=== PATIENT | male | born 1970 | race Caucasian/White ===

== ENCOUNTER 2018-03-19 20:41 | Outpatient (REF) | payer MEDICAID, SELFPAY ==
[2018-03-19 21:37] LABS: Cholesterol 297 mg/dL (50-200); HDL Cholesterol 53 mg/dL (40-60); LDL CHOLESTEROL 218 mg/dL (<100); Triglyceride 162 mg/dL (30-150)
== END 2018-03-19 21:01 ==
LOC: NCHCN 20:41
PROVIDERS: PCP Specialist/Technologist Athletic Trainer; Visit Provider Specialist/Technologist Athletic Trainer
DX: Z13.220 Encounter for screening for lipoid disorders (principal); Z00.00 Encounter for general adult medical examination without abnormal findings
CPT/HCPCS: 80061; 83721

== ENCOUNTER 2019-07-01 09:41 | Outpatient (REF) | payer MEDICAID, SELFPAY ==
[2019-07-01 20:12] LABS: ALT 54 U/L (16-63); AST 25 U/L (15-37); Albumin 4.2 g/dL (3.4-5.0); Alkaline Phosphatase 64 U/L (46-116); BUN 15 mg/dL (7-18); Bilirubin, Total 0.6 mg/dL (0.2-1.0); CREATININE 0.78 mg/dL (0.70-1.30); Calcium 9.1 mg/dL (8.5-10.1); Calculated LDL 206 mg/dL (<100); Chloride 103 mmol/L (98-107); Cholesterol 285 mg/dL (<200); Glucose 91 mg/dL (74-106); HDL Cholesterol 52 mg/dL (40-60); Potassium 4.6 mmol/L (3.5-5.1); Sodium 141 mmol/L (136-145); Total Protein 7.4 g/dL (6.4-8.2); Triglyceride 136 mg/dL (<150)
[2019-07-01 20:23] LABS: Creatine Kinase 107 U/L (39-308)
== END 2019-07-01 10:01 ==
LOC: NCHCN 09:41
PROVIDERS: PCP Specialist/Technologist Athletic Trainer; Visit Provider Nurse Practitioner Family
DX: E78.5 Hyperlipidemia, unspecified (principal)
CPT/HCPCS: 80053; 80061; 82550

== ENCOUNTER 2019-09-24 13:57 | Outpatient (REF) | payer MEDICAID, SELFPAY ==
[2019-09-25 17:52] LABS: COVID-19 RT-PCR UVMMC Result Negative (Negative)
== END 2019-09-24 14:17 ==
LOC: NCHCN 13:57
PROVIDERS: PCP Specialist/Technologist Athletic Trainer; Visit Provider Physician Assistant
DX: R05 Cough (principal)
CPT/HCPCS: U0003

== ENCOUNTER 2019-10-18 13:37 | Outpatient (CLI) | payer MEDICAID, SELFPAY ==
--- NOTE | 2019-10-18 14:25 | DI.RAD_ITS ---
EXAM: XR CHEST 2V PA LATERAL CLINICAL HISTORY: COUGH, R05, TESTED NEG FOR COVID TECHNIQUE: 2D digital imaging was performed. COMPARISON: No exams were available for comparison FINDINGS: MEDIASTINUM: Normal. HEART: Normal. PULMONARY VASCULATURE: Normal. LUNGS: Clear. PLEURAL SPACE: No pleural effusion or pneumothorax. BONE:Normal. OTHER FINDINGS:Normal. IMPRESSION: No acute pulmonary findings. DATA REPOSITORY: RADIATION DOSE DELIVERED:
== END 2019-10-18 13:57 ==
PROVIDERS: PCP Specialist/Technologist Athletic Trainer; Visit Provider Nurse Practitioner Family
DX: R05 Cough (principal)
CPT/HCPCS: 71046

== ENCOUNTER 2020-01-20 08:19 | Outpatient (REF) | payer MEDICAID, SELFPAY ==
[2020-01-20 20:23] LABS: Calculated LDL 82 mg/dL (<100); Cholesterol 152 mg/dL (<200); HDL Cholesterol 55 mg/dL (40-60); Triglyceride 77 mg/dL (<150)
== END 2020-01-20 08:39 ==
LOC: NCHCN 08:19
PROVIDERS: PCP Specialist/Technologist Athletic Trainer; Visit Provider Nurse Practitioner Family
DX: E78.5 Hyperlipidemia, unspecified (principal)
CPT/HCPCS: 80061

== ENCOUNTER 2020-12-17 08:35 | Outpatient (REF) | payer MEDICAID, SELFPAY ==
[2020-12-17 14:49] LABS: Calculated LDL 92 mg/dL (<100); Cholesterol 162 mg/dL (<200); HDL Cholesterol 54 mg/dL (40-60); Triglyceride 83 mg/dL (<150)
== END 2020-12-17 08:36 | disposition home or self-care (01) ==
LOC: NCHCN 08:35
PROVIDERS: PCP Specialist/Technologist Athletic Trainer; Visit Provider Nurse Practitioner Family
DX: E78.5 Hyperlipidemia, unspecified (principal)
CPT/HCPCS: 80061

== ENCOUNTER 2021-05-31 07:03 | Emergency (ER) | payer MEDICAID, SELFPAY ==
[2021-05-31 07:12] VITALS: BP 114/79; PULSE 113; TEMP 37.2; O2SAT 96
--- NOTE | 2021-05-31 07:15 | DI.CT_ITS ---
Exam(s) CT HEAD WO EXAM: CT HEAD WO CLINICAL HISTORY: fell down stairs, hit R temporal forhead. TECHNIQUE: Imaging Protocol: Axial computed tomography images with coronal and sagittal reformatted images were created and reviewed COMPARISON: No exams were available for comparison FINDINGS: There are no skull fractures nor fluid in the visualized paranasal sinuses. There is some mucosal t hickening noted in the anterior medial right maxillary sinus and posterior left maxillary sinus, not associated with fluid levels therein. There is no evidence of intracranial hemorrhage, mass effect, or shift of midline structures. There are no extra-axial fluid collections. The ventricles are not enlarged or shifted and there is no blo od within the ventricular system nor within the basal cisterns. IMPRESSION: No acute intracranial findings on this noninfused CT scan of the brain. Some mucosal thickening in the maxillary sinuses bilaterally but no fluid levels. RADIATION DOSE DELIVERED: 806.95mGy.cm Total DLP DATA REPOSITORY: All CT scans at this facility are submitted to the National Radiology Data Registry (NRDR) Dose Index Registry (DIR) with the [employer] ([employer]). RADIATION OPTIMIZATION: All CT scans at this facility use at least one of these dose optimization te chniques: automated exposure control; mA and/or kV adjustment per patient size (includes targeted exa ms where dose is matched to clinical indication); or iterative reconstruction.
--- NOTE | 2021-05-31 07:20 | DI.RAD_ITS ---
Exam(s) XR PORTABLE CHEST AP EXAM: XR PORTABLE CHEST AP CLINICAL HISTORY: cough, fever, fall, r/o pneumonia. TECHNIQUE: 2D digital imaging was performed. COMPARISON: CR XR CHEST 2V PA LATERAL from 10/18/2019 FINDINGS: Heart size is upper normal. The mediastinum is not widened. Lungs are clear. No infiltrates nor obvious pleural effusions. IMPRESSION: No acute pulmonary findings on this single AP portable view of the chest. DATA REPOSITORY: RADIATION DOSE DELIVERED: All CT scans at this facility use at least one of these dose optimization techniques: automated exposure control; mA and/or kV adjustment per patient size (includes targeted e xams where dose is matched to clinical indication); or iterative reconstruction.
--- NOTE | 2021-05-31 07:21 | ED.GENADUL_ITS ---
Discharge Plan Disposition Patient Disposition: HOME Condition: Good Discharge Details Clinical Impression: Fall, Contusion of head, COVID-19 Primary Care Provider: Calderon Mejia ED Provider: Cecilia Mcdowell Home Meds and New Rx's Prescriptions: No Action rosuvastatin 20 mg tablet 20 mg PO QHS RF: 0 Discharge Instructions Instructions: Head Injury (ED), COVID-19 (Coronavirus Disease 2019) (ED) Additional Instructions: Please isolate for minimum of 5 days or until asymptomatic as we discussed to prevent transmission of Covid. Please return immediately to the emergency department if you develop any new or worsening symptoms, if your condition does not improve as expected, or if you become otherwise concerned. It is extremely important that you call soon as possible to make an appointment to be seen in follow-up for this visit by your primary care doctor. Referrals: Calderon Mejia [Primary Care Provider] - Medical Decision Making <Trace Morales DO - Last Filed: 05/31/21 07:26> 51-year-old male with past medical history of high cholesterol who does not smoke or drink otherwise, presents with chief complaint of fall. Over the last 3 to 4 days the patient has had mild fever with a T-max of 100.3, as well as runny nose, congestion and a very mild cough. He did do a home Covid test and this was negative. He did receive the [employer] Covid vaccine in December 2020. He has been taking Tylenol and Motrin and this was controlled his fever well. As soon as he woke up this morning he ran downstairs to check his temperature while he was going down the stairs fell and hit his head on the right side of the head and the front of his head. He denies loss of consciousness but does state that he was pretty out of it from immediately waking up and running downstairs. He denies any presyncopal event. Aside from mild achiness throughout his body she denies any other significant pain. No vision change, no numbness or tingling or weakness. He is not on any blood thinners. No neck pain. No other complaints at this time. No other modifying factors. Physical exam demonstrates mild hematoma over the right congregational, mild abrasion over the forehead. No midline cervical thoracic or lumbar spine tenderness. Lungs are clear, patient certainly mildly elevated. Suspect of viral illness, differential does include Covid though. We will test for this year. Because of the nature of the patient all of the hematoma on his temporal aspect, we will get a CT scan of the head for further assessment. No indication for other CT imaging at this time there is no other evidence of tenderness throughout the rest of his body. With his mild cough which is seemingly resolved we will get a chest x-ray out of an abundance of precaution to eval for potential pneumonia or infectious etiology. Case will be signed out to my colleague Dr. Serenity Mcdowell for reassessment follow-up on labs and imaging. We will give 1 L of normal saline to rehydrate the patient. <Cecilia Mcdowell MD - Last Filed: 05/31/21 15:43> Jg Brantley was signed out to me by Dr. Morales at time of shift change with labs, imaging pending. Labs reviewed, WBC 8.48, hemoglobin 15.4, potassium 4.7, anion gap 7.1, creatinine 1.1, Covid PCR positive. CT head and chest x-ray per radiology negative. On my evaluation patient reports that he has no symptoms, feels at baseline. He is very well and nontoxic-appearing. I had a lengthy discussion with patient regarding his results. Patient reports hyperlipidemia is only medical problem, patient is low risk for development of severe Covid, does not qualify for antiviral or antibody infusion treatment at this time. Discussed isolation plan to prevent transmission to others, pulse oximeter use at home (patient has pulse oximeter stone), and return to emerge department precautions. I had a discussion with Patient regarding return to emergency department precautions, home care, and importance of outpatient follow-up. Pt verbalizes understanding of the plan and is amenable. Patient discharged to home with clear plan for outpatient follow-up. All questions were answered. Disposition decision was made weighing the risks and benefits of hospitalization versus outpatient treatment, the risk for further decompensation, and the patient's wishes. Medical Records Medical records reviewed: Yes I reviewed the patient's medical records. Imaging Data Radiologic Study: Attestation: I personally reviewed and interpreted this imaging study as follows: Radiologist's impression: EXAM: XR PORTABLE CHEST AP CLINICAL HISTORY: cough, fever, fall, r/o pneumonia. TECHNIQUE: 2D digital imaging was performed. COMPARISON: CR XR CHEST 2V PA LATERAL from 10/18/2019 FINDINGS: Heart size is upper normal. The mediastinum is not widened. Lungs are clear. No infiltrates nor obvious pleural effusions. IMPRESSION: No acute pulmonary findings on this single AP portable view of the chest. EXAM: CT HEAD WO CLINICAL HISTORY: fell down stairs, hit R temporal forhead. TECHNIQUE: Imaging Protocol: Axial computed tomography images with coronal and sagittal reformatted images were created and reviewed COMPARISON: No exams were available for comparison FINDINGS: There are no skull fractures nor fluid in the visualized paranasal sinuses. There is some mucosal thickening noted in the anterior medial right maxillary sinus and posterior left maxillary sinus, not associated with fluid levels therein. There is no evidence of intracranial hemorrhage, mass effect, or shift of midline structures. There are no extra-axial fluid collections. The ventricles are not enlarged or shifted and there is no blood within the ventricular system nor within the basal cisterns. IMPRESSION: No acute intracranial findings on this noninfused CT scan of the brain. Some mucosal thickening in the maxillary sinuses bilaterally but no fluid levels. Lab Data Lab results reviewed: Yes I reviewed the patient's lab results. Labs: Laboratory Tests Range/Units 05/31/21 05/31/21 05/31/21 07:30 07:30 07:30 WBC (4.4-10.8) 10^3/uL 8.48 RBC (4.36-5.78) 10^6/uL 4.86 Hgb (13.5-17.5) g/dL 15.4 Hct (40.0-50.0) % 46.7 MCV (80-95) fL 96.1 H MCH (27.0-33.0) pg 31.7 MCHC (32.0-36.0) % 33.0 RDW (11.8-14.1) % 12.1 Plt Count (130-400) 10^3/uL 185 MPV (8.0-11.0) fL 10.0 Immature Gran % 0.5 Neutrophils % 79.0 Lymphocytes % 10.6 Monocytes % 8.8 Eosinophils % 0.5 Basophils % 0.6 Nucleated RBC % % 0 Absolute Neutrophils (1.2-6.7) 10^3/uL 6.70 Absolute Lymphocytes (1.2-3.4) 10^3/uL 0.90 L Absolute Monocytes (0.1-0.8) 10^3/uL 0.75 Absolute Eosinophils (0.0-0.7) 10^3/uL 0.04 Absolute Basophils (0.0-0.2) 10^3/uL 0.05 Sodium (136-145) mmol/L 137 Potassium (3.5-5.1) mmol/L 4.7 Chloride (98-107) mmol/L 101 Carbon Dioxide (21.0-32.0) mmol/L 28.9 Anion Gap (3-11) mmol/L 7.1 BUN (7-18) mg/dL 16 Creatinine (0.70-1.30) mg/dL 1.1 Estimated GFR/1.73 m2 (mL/min/1.73m2) >= 60.00 Glucose (74-106) mg/dL 134 H Calcium (8.5-10.1) mg/dL 8.8 Total Bilirubin (0.2-1.0) mg/dL 0.3 AST (15-37) U/L 33 ALT (16-63) U/L 50 Alkaline Phosphatase (46-116) U/L 73 Total Protein (6.4-8.2) g/dL 7.8 Albumin (3.4-5.0) g/dL 4.1 COVID-19 Source Nasal/Nares SARS-CoV-2 (PCR) (Negative) POSITIVE A* HPI <Trace Morales DO - Last Filed: 05/31/21 07:26> General Date/Time Provider Initiated Documentation: 05/31/21 07:05 . HPI Narrative: 51-year-old male with past medical history of high cholesterol who does not smoke or drink otherwise, presents with chief complaint of fall. Over the last 3 to 4 days the patient has had mild fever with a T-max of 100.3, as well as runny nose, congestion and a very mild cough. He did do a home Covid test and this was negative. He did receive the [employer] Covid vaccine in December 2020. He has been taking Tylenol and Motrin and this was controlled his fever well. As soon as he woke up this morning he ran downstairs to check his temperature while he was going down the stairs fell and hit his head on the right side of the head and the front of his head. He denies loss of consciousness but does state that he was pretty out of it from immediately waking up and running downstairs. He denies any presyncopal event. Aside from mild achiness throughout his body she denies any other significant pain. No vision change, no numbness or tingling or weakness. He is not on any blood thinners. No neck pain. No other complaints at this time. No other modifying factors. Related Data Home Medications Medication Instructions Recorded Confirmed rosuvastatin 20 mg PO QHS 05/31/21 05/31/21 Allergies Allergy/AdvReac Type Severity Reaction Status Date / Time Penicillins Allergy Intermediate Skin Rash Unverified 05/31/21 07:19 General Stated Complaint: HeadInjury BYRON: 3 Review of Systems <Trace Morales DO - Last Filed: 05/31/21 07:26> All systems reviewed & are unremarkable except as noted in HPI and below PFSH <Trace Morales DO - Last Filed: 05/31/21 07:26> All Active Problems (Updated 05/31/21 @ 09:23 by Cecilia Mcdowell MD) Fall (Acute) Contusion of head (Acute) COVID-19 (Acute) Social History Smoking/Tobacco Use Status: Never Smoking risk assessment performed?: Yes Alcohol Intake: current Alcohol Intake frequency: a few times a month Drug use: Never Substance use type: does not use Do you feel safe at home: Yes Do you feel safe in your relationship?: Yes Exam <Trace Morales DO - Last Filed: 05/31/21 07:26> Narrative Exam Narrative: 1.Const: Well-nourished, Well-developed, appearing stated age 2.Eyes: PERRL, no conjunctival injection, and symmetrical lids. 3.ENT: Atraumatic external nose and ears. Moist MM. Neck: Symmetric, trachea midline, No thyromegaly. There is no evidence of raccoon eyes, thornton sign, CSF rhinorrhea, mastoid tenderness, cranial crepitus, hemotympanum, exophthalmos, or hyphema. Patient demonstrates intact dentition with no signs of tooth avulsion or fracture, no signs of jaw deformity, no evidence of a LeFort's fracture, with an intact palate, nose and orbital region. There is no evidence of a nasal septal hematoma. No proptosis. Jaw closes symmetrically. Airway is clear. Mild abrasion is present over the forehead and a mild hematoma is noted over the right congregational. 4.CVS: +S1/S2, No murmurs or gallops. Peripheral pulses 2+ and equal in all extremities. Brisk capillary refill in all extremities. 5.RESP: Unlabored respiratory effort. Clear to auscultation bilaterally. No w heezes rales or rhonchi 6.GI: Soft, Nontender/Nondistended, No hepatosplenomegaly. No guarding or rebound. 7.MSK: Normocephalic/Atraumatic, Extremities w/o deformity or ttp No cyanosis or clubbing, Normal movement of all extremities. Please see ENT No midline tenderness to palpation over the CTLS spine. Normal ROM in flexion, extension, side bend, and rotation. Patient has +5 out of 5 strength in the lower extremities in dorsiflexion and plantarflexion, knee flexion and extension, hip flexion and extension. Normal strength for dorsiflexion and plantar flexion of the great toe bilaterally. There is +2 over 2 dorsalis pedis pulses bilaterally. There is normal sensation to the skin with light touch at the foot, knee, and hip. Normal saddle sensation. Good sensation over the deep sural nerve area bilaterally. Rectal exam deferred. Reflexes are +2 over 4 in the patellar reflex bilaterally. +5 out of 5 strength in the medial, ulnar, radial nerve distribution bilaterally in the hands as well as intact light touch sensation to these dermatomes on the hands 8.Skin: Warm, Dry. No rashes or lesions. 9.Neuro: civil process server II-XII grossly intact. Sensation grossly intact, no focal neurologi c deficits. All 6 cardinal planes of vision are fully intact. No evidence of rotatory or vertical nystagmus. The patient demonstrated a normal [id number], good dexterity. There was no evidence of dysdiadochokinesia. Patient was able to ambulate without difficulty. There was no wide-based gait. Romberg testing was normal. Foji-zw-uptt testing was normal. Sensation was intact bilaterally as well as muscle strength bilaterally for all extremities. Patient was able to verbalize butter cup with no slurring, or miss pronunciation. 10.Psych: (AAO) x3. Appropriate mood and affect Course <Trace Morales DO - Last Filed: 05/31/21 07:26> Vital Signs Vital signs: Vital Signs Temperature 37.2 C 05/31/21 07:12 Pulse 113 H 05/31/21 07:12 Blood Pressure 114/79 05/31/21 07:12 Pulse Oximetry 96 05/31/21 07:12 Temperature 37.2 C 05/31/21 07:12 Temperature Source Temporal Artery Scan 05/31/21 07:12 Pulse 113 H 05/31/21 07:12 Blood Pressure 114/79 05/31/21 07:12 Blood Pressure Position Sitting 05/31/21 07:12 Pulse Oximetry 96 05/31/21 07:12 Oxygen Delivery Method Room Air 05/31/21 07:12 Oxygen Flow Rate 0 05/31/21 07:12 Sign Out <Trace Morales DO - Last Filed: 05/31/21 07:26> Sign Out Data: Sign Out Comment: Mild fever chills and upper respiratory symptoms for last 2 days. Fell and hit head today. Pending CT scan Covid test rehydration and reassessment. Last updated by Trace Morales DO at 05/31/21 07:27
[2021-05-31 07:40] LABS: Source Nasal/Nares
[2021-05-31 07:43] LABS: Abs Immature Grans 0.04 10^3/uL (0.0-0.06); Absolute Basophil Count 0.05 10^3/uL (0.0-0.2); Absolute Eosinophil Count 0.04 10^3/uL (0.0-0.7); Absolute Monocyte Count 0.75 10^3/uL (0.1-0.8); Basophils % 0.6; Eosinophils % 0.5; HCT 46.7 % (40.0-50.0); HGB 15.4 g/dL (13.5-17.5); Immature Grans % 0.5; Lymphocytes % 10.6; MCH 31.7 pg (27.0-33.0); MCV 96.1 fL (80-95); Monocytes % 8.8; Nucleated RBC 0 %; Platelet Count 185 10^3/uL (130-400); RBC 4.86 10^6/uL (4.36-5.78); RDW 12.1 % (11.8-14.1); RDW-SD 43.3 fL; WBC 8.48 10^3/uL (4.4-10.8)
[2021-05-31] MEDS: Normal Saline 1,000 ML 1000 ML IV (07:43)
[2021-05-31 07:56] LABS: ALT 50 U/L (16-63); AST 33 U/L (15-37); Albumin 4.1 g/dL (3.4-5.0); Alkaline Phosphatase 73 U/L (46-116); Anion Gap 7.1 mmol/L (3-11); BUN 16 mg/dL (7-18); Bilirubin, Total 0.3 mg/dL (0.2-1.0); CO2 28.9 mmol/L (21.0-32.0); CREATININE 1.1 mg/dL (0.70-1.30); Calcium 8.8 mg/dL (8.5-10.1); Chloride 101 mmol/L (98-107); Glucose 134 mg/dL (74-106); Potassium 4.7 mmol/L (3.5-5.1); Sodium 137 mmol/L (136-145); Total Protein 7.8 g/dL (6.4-8.2)
[2021-05-31 08:41] LABS: COVID-19 PCR POSITIVE (Negative)
[2021-05-31 09:34] VITALS: BP 121/82; PULSE 100; RESP 20; O2SAT 98
== END 2021-05-31 10:03 | disposition home or self-care (01) ==
PROVIDERS: Student in an Organized Health Care Education/Training Program; Emergency Provider Student in an Organized Health Care Education/Training Program; PCP Specialist/Technologist Athletic Trainer
DX: U07.1 COVID-19 (principal); S00.83XA Contusion of other part of head, initial encounter; W18.39XA Other fall on same level, initial encounter; R05.1 Acute cough
CPT/HCPCS: 36415; 80053; 87635; 96360; 96361; 99284; 70450; 71045; 85025

== ENCOUNTER 2022-07-22 11:22 | Outpatient (REF) | payer MEDICAID, SELFPAY ==
[2022-07-22 17:55] LABS: ALT 29 U/L (16-63); AST 19 U/L (15-37); Albumin 3.9 g/dL (3.4-5.0); Alkaline Phosphatase 59 U/L (46-116); BUN 19 mg/dL (7-18); Bilirubin, Total 0.5 mg/dL (0.2-1.0); Calcium 9.1 mg/dL (8.5-10.1); Calculated LDL 90 mg/dL (<100); Chloride 109 mmol/L (98-107); Cholesterol 165 mg/dL (<200); Estimated GFR 90.56 (mL/min/1.73m2); Glucose 86 mg/dL (74-106); HDL Cholesterol 60 mg/dL (40-60); Potassium 4.5 mmol/L (3.5-5.1); Sodium 144 mmol/L (136-145); Total Protein 7.2 g/dL (6.4-8.2); Triglyceride 78 mg/dL (<150)
== END 2022-07-22 11:23 | disposition home or self-care (01) ==
LOC: NCHCN 11:22
PROVIDERS: PCP Specialist/Technologist Athletic Trainer; Visit Provider Nurse Practitioner Family
DX: E78.5 Hyperlipidemia, unspecified (principal)
CPT/HCPCS: 80053; 80061

== ENCOUNTER 2023-07-28 10:11 | Outpatient (REF) | payer MEDICAID, SELFPAY ==
[2023-07-28 15:46] LABS: ALT 40 U/L (16-63); AST 19 U/L (15-37); Albumin 4.3 g/dL (3.4-5.0); Alkaline Phosphatase 63 U/L (46-116); Anion Gap 8.8 mmol/L (3-11); BUN 18 mg/dL (7-18); Bilirubin, Total 0.5 mg/dL (0.2-1.0); CO2 28.2 mmol/L (21.0-32.0); CREATININE 0.9 mg/dL (0.70-1.30); Calcium 9.5 mg/dL (8.5-10.1); Chloride 107 mmol/L (98-107); Estimated GFR 102.12 (mL/min/1.73m2); Glucose 99 mg/dL (74-106); Potassium 4.4 mmol/L (3.5-5.1); Sodium 144 mmol/L (136-145); Total Protein 7.8 g/dL (6.4-8.2)
== END 2023-07-28 10:12 | disposition home or self-care (01) ==
LOC: NCHCN 10:11
PROVIDERS: PCP Specialist/Technologist Athletic Trainer; Visit Provider Nurse Practitioner Family
DX: Z00.00 Encounter for general adult medical examination without abnormal findings (principal); Z13.228 Encounter for screening for other metabolic disorders
CPT/HCPCS: 80053

== ENCOUNTER 2024-04-16 14:17 | Emergency (ER) | payer MEDICAID, SELFPAY ==
[2024-04-16] VITALS (19 sets, daily range): BP systolic 126–166; BP diastolic 84–116; PULSE 70–102; RESP 10–31; TEMP 36.5; O2SAT 94–98
--- NOTE | 2024-04-16 14:15 | RT.EKG_ITS ---
APPROVED REPORT Exam: Resting ECG Reason for Exam: Palpatations Patient Location: E HR:100 bpm ECG Measurements Heart Rate 100 AXIS TX 133 P 28 QRSd 88 QRS 27 QT 347 T 38 QTc 446 Conclusion Sinus tachycardia...rate> 99 Narrow complex normal sinus rhythm at a rate of 100. Normal axis. Intervals within normal limits. No ST segment abnormalities. No T wave inversions. No acute injury pattern. No prior for compariso n.
--- NOTE | 2024-04-16 14:30 | DI.RAD_ITS ---
Exam(s) XR CHEST 2V PA LATERAL EXAM: XR CHEST 2V PA LATERAL CLINICAL HISTORY: Chest pain TECHNIQUE: 2D digital imaging was performed. Two views. COMPARISON: CR XR PORTABLE CHEST AP from 05/31/2021 FINDINGS: HEART: Normal size. Aorta: Not dilated. PULMONARY VASCULATURE: Normal. MEDIASTINUM: Unremarkable. LUNGS: Clear. PLEURAL SPACE: No pleural effusion or pneumothorax. BONE:Unremarkable for age. SOFT TISSUES: Unremarkable. IMPRESSION: No acute abnormality. DATA REPOSITORY: RADIATION DOSE DELIVERED:
[2024-04-16 15:11] LABS: Abs Immature Grans 0.02 10^3/uL (0.0-0.06); Absolute Basophil Count 0.06 10^3/uL (0.0-0.2); Absolute Eosinophil Count 0.23 10^3/uL (0.0-0.7); Absolute Lymphocyte Count 1.35 10^3/uL (1.2-3.4); Absolute Neutrophil Count 4.58 10^3/uL (1.2-6.7); Basophils % 0.9 %; Eosinophils % 3.5 %; HCT 45.6 % (40.0-50.0); HGB 15.5 g/dL (13.5-17.5); Immature Grans % 0.3 %; Lymphocytes % 20.3 %; MCV 94 fL (80-95); MPV 10.1 fL (8.0-11.0); Platelet Count 219 10^3/uL (130-400); RBC 4.84 10^6/uL (4.36-5.78); RDW 12.1 % (11.8-14.1); RDW-SD 41.9 fL; WBC 6.64 10^3/uL (4.4-10.8)
[2024-04-16 15:31] LABS: ALT 28 U/L (16-63); AST 17 U/L (15-37); Albumin 4.3 g/dL (3.4-5.0); Alkaline Phosphatase 72 U/L (46-116); Anion Gap 8.7 mmol/L (3-11); BUN 15 mg/dL (7-18); Bilirubin, Total 0.33 mg/dL (0.2-1.0); CO2 27.3 mmol/L (21.0-32.0); CREATININE 1.1 mg/dL (0.70-1.30); Calcium 9.1 mg/dL (8.5-10.1); Chloride 106 mmol/L (98-107); Estimated GFR 79.77 (mL/min/1.73m2); Glucose 101 mg/dL (74-106); Lipase 33 U/L (<78); Magnesium 2.1 mg/dL (1.8-2.4); Sodium 142 mmol/L (136-145); Total Protein 7.9 g/dL (6.4-8.2); Troponin I 5 ng/L (<or=76)
[2024-04-16 15:34] LABS: TSH 1.12 uIU/mL (0.36-3.74)
--- NOTE | 2024-04-16 16:53 | ED.GENADUL_ITS ---
Discharge Plan Disposition Patient Disposition: Home Discharge Details Clinical Impression: Cough, Chest pain Primary Care Provider: Tish Parada ED Provider: Sara Pride Home Meds and New Rx's Prescriptions: No Action rosuvastatin 20 mg tablet 20 mg PO QHS Patient Comments: TAKE 1 TABLET BY MOUTH DAILY omeprazole 20 mg capsule,delayed release(DR/EC) 20 mg PO DAILY PRN Discharge Instructions Instructions: Chest pain Additional Instructions: Your blood work EKG and chest x-ray are all within normal limits. Initially her vital signs were slightly abnormal, but they normalized during your stay The symptoms may be related to side effects from your medications. Please discuss this with your primary care provider Discharge Data Discharge Date/Time-TO BE ENTERED AT DEPARTURE: 04/16/24 16:25 HPI General Date/Time Provider Initiated Documentation: 04/16/24 14:37 . Limitations to Documentation: no limitations . Information obtained by: patient . HPI Narrative: 54-year-old gentleman with past medical history of hyperlipidemia presents for evaluation of cough and chest discomfort. He reports symptoms started yesterday. He reports that for several months he has a morning cough that he has been attributing to his rosuvastatin. He says that he feels congested it is worse in the morning and improves throughout the day. He states that he also has been having some increased heartburn and has been taking Tums but if he takes Tums more than a few times a week he will usually take a few doses of omeprazole. He states that yesterday he noticed that his cough was not as bad in the morning, but toward the end of the day it was worse. He had sharp pain with the cough and did not have any shortness of breath. Cough nonproductive. No fever. Related Data Home Medications ?Medication ?Instructions ?Recorded ?Confirmed rosuvastatin 20 mg tablet 20 mg PO QHS 05/31/21 04/16/24 omeprazole 20 mg capsule,delayed 20 mg PO DAILY PRN 04/16/24 04/16/24 release Allergies Allergy/AdvReac Type Severity Reaction Status Date / Time Penicillins Allergy Intermediate Skin Rash Unverified 04/16/24 14:32 General Stated Complaint: Chest Pain BYRON: 3 Exam Narrative Exam Narrative: Review of Systems: All systems reviewed & are unremarkable except as noted in HPI and below Well-developed, no acute distress NCAT PERRL, normal conjunctiva RRR Unlabored respiratory effort clear bilaterally Nondistended abdomen Extremities w/o deformity, no cyanosis, no edema No rashes or lesions. no focal neurologic deficits Appropriate mood and affect Course Vital Signs Vital signs: Vital Signs Respiratory Rate 15 04/16/24 14:20 Temperature 36.5 C 04/16/24 14:28 Temperature Source Oral 04/16/24 14:28 Pulse 82 04/16/24 16:23 Pulse 79 04/16/24 16:16 Respiratory Rate 23 04/16/24 16:23 Respiratory Effort Normal, Non-Labored 04/16/24 14:38 Respiratory Depth Normal 04/16/24 14:38 Respiratory Pattern Normal 04/16/24 14:38 Blood Pressure 128/99 H 04/16/24 16:23 Blood Pressure Mean 105 04/16/24 16:16 Blood Pressure Position Sitting 04/16/24 14:28 Pulse Oximetry 94 04/16/24 16:23 Oxygen Delivery Method Room Air 04/16/24 14:28 Oxygen Flow Rate 0 04/16/24 14:28 Pain Level 0 04/16/24 16:23 Comment intermittent, ongoing for years. 04/16/24 14:28 Lab/Test Results Lab/Test Results: Laboratory Tests Range/Units 04/16/24 04/16/24 04/16/24 15:03 15:42 17:42 WBC (4.4-10.8) 10^3/uL 6.64 RBC (4.36-5.78) 10^6/uL 4.84 Hgb (13.5-17.5) g/dL 15.5 Hct (40.0-50.0) % 45.6 MCV (80-95) fL 94 MCH (27.0-33.0) pg 32.0 MCHC (32.0-36.0) % 34.0 RDW (11.8-14.1) % 12.1 Plt Count (130-400) 10^3/uL 219 MPV (8.0-11.0) fL 10.1 Immature Gran % % 0.3 Neutrophils % % 69.0 Lymphocytes % % 20.3 Monocytes % % 6.0 Eosinophils % % 3.5 Basophils % % 0.9 Nucleated RBC % (0.0-0.3) % 0.0 Absolute Neutrophils (1.2-6.7) 10^3/uL 4.58 Absolute Lymphocytes (1.2-3.4) 10^3/uL 1.35 Absolute Monocytes (0.1-0.8) 10^3/uL 0.40 Absolute Eosinophils (0.0-0.7) 10^3/uL 0.23 Absolute Basophils (0.0-0.2) 10^3/uL 0.06 Sodium (136-145) mmol/L 142 Potassium (3.5-5.1) mmol/L 4.0 Chloride (98-107) mmol/L 106 Carbon Dioxide (21.0-32.0) mmol/L 27.3 Anion Gap (3-11) mmol/L 8.7 BUN (7-18) mg/dL 15 Creatinine (0.70-1.30) mg/dL 1.1 Est GFR (CKD-EPI 2020) (mL/min/1.73m2) 79.77 Glucose (74-106) mg/dL 101 Calcium (8.5-10.1) mg/dL 9.1 Magnesium (1.8-2.4) mg/dL 2.1 Total Bilirubin (0.2-1.0) mg/dL 0.33 AST (15-37) U/L 17 ALT (16-63) U/L 28 Alkaline Phosphatase (46-116) U/L 72 Troponin I (<or=76) ng/L 5 Cancelled Cancelled Total Protein (6.4-8.2) g/dL 7.9 Albumin (3.4-5.0) g/dL 4.3 Lipase (<78) U/L 33 TSH (0.36-3.74) uIU/mL 1.12 Medical Decision Making Urgent evaluation of cough and chest pain. Cough is not nearly and may be related to the rosuvastatin. He reports chest pain starting yesterday. Only has sensation of something in his chest though he is not very specific. It does not sound like true cardiac chest pain. His EKG was reviewed and independently interpreted: Sinus [address] segment changes. His heart rate has come down while I was evaluating him and I do not suspect a tacky dysrhythmias of etiology of his pain. Will get labs including chest x-ray to evaluate for possible pneumonia given his cough Lab work reviewed, no leukocytosis or anemia. No electrolyte derangement . Troponin is not elevated. Chest x-ray does not reveal any consolidation. Vital signs have all normalized. At this time I feel he is stable for discharge home. I do recommend discussion with his PCP regarding the cough and rosuvastatin. Return precautions advised. Quality:SDOH Health Related Social Needs: No Data to Display PFSH All Active Problems Chest pain (Acute) Cough (Acute) COVID-19 (Acute) Social History Smoking/Tobacco Use Status: Never Smoking risk assessment performed?: Yes Alcohol Intake: current Alcohol Intake frequency: a few times a month Drug use: Never Substance use type: does not use Housing: house Do you feel safe at home: Yes Do you feel safe in your relationship?: Yes
== END 2024-04-16 16:25 | disposition home or self-care (01) ==
PROVIDERS: Emergency Provider Emergency Medicine; PCP Nurse Practitioner Family
DX: R07.9 Chest pain, unspecified (principal); R05.9 Cough, unspecified; R00.0 Tachycardia, unspecified; E78.5 Hyperlipidemia, unspecified
CPT/HCPCS: 36415; 80053; 83690; 93005; 99285; 71046; 83735; 84443; 84484; 85025; 93010; 99284

== ENCOUNTER 2024-08-01 08:48 | Outpatient (REF) | payer MEDICAID, SELFPAY ==
[2024-08-01 16:44] LABS: ALT 32 U/L (16-63); AST 21 U/L (15-37); Albumin 4.3 g/dL (3.4-5.0); Alkaline Phosphatase 67 U/L (46-116); Anion Gap 6.5 mmol/L (3-11); BUN 17 mg/dL (7-18); Bilirubin, Total 0.9 mg/dL (0.2-1.0); CO2 29.5 mmol/L (21.0-32.0); Calcium 9.5 mg/dL (8.5-10.1); Calculated LDL 165 mg/dL (<100); Chloride 107 mmol/L (98-107); Cholesterol 242 mg/dL (<200); Estimated GFR 89.44 (mL/min/1.73m2); Glucose 87 mg/dL (74-106); HDL Cholesterol 57 mg/dL (>or=40); Potassium 4.3 mmol/L (3.5-5.1); Sodium 143 mmol/L (136-145); Total Protein 7.5 g/dL (6.4-8.2); Triglyceride 103 mg/dL (<150)
[2024-08-01 22:36] LABS: HIV-1/2 Ag & Ab Screen Negative (Negative)
== END 2024-08-01 08:49 | disposition home or self-care (01) ==
LOC: NCHCN 08:48
PROVIDERS: PCP Nurse Practitioner Family; Visit Provider Nurse Practitioner Family
DX: Z00.00 Encounter for general adult medical examination without abnormal findings (principal); E78.5 Hyperlipidemia, unspecified
CPT/HCPCS: 80053; 80061; 87389

== ENCOUNTER 2024-10-29 12:38 | Outpatient (REF) | payer MEDICAID, SELFPAY ==
[2024-10-29 17:53] LABS: ALT 36 U/L (16-63); AST 19 U/L (15-37); Albumin 4.4 g/dL (3.4-5.0); Alkaline Phosphatase 69 U/L (46-116); Anion Gap 5.2 mmol/L (3-11); BUN 20 mg/dL (7-18); Bilirubin, Total 0.9 mg/dL (0.2-1.0); CO2 30.8 mmol/L (21.0-32.0); Calcium 9.3 mg/dL (8.5-10.1); Calculated LDL 112 mg/dL (<100); Chloride 105 mmol/L (98-107); Cholesterol 181 mg/dL (<200); Estimated GFR 89.44 (mL/min/1.73m2); Glucose 94 mg/dL (74-106); HDL Cholesterol 54 mg/dL (>or=40); Potassium 4.6 mmol/L (3.5-5.1); Sodium 141 mmol/L (136-145); Total Protein 7.3 g/dL (6.4-8.2); Triglyceride 75 mg/dL (<150)
== END 2024-10-29 12:39 | disposition home or self-care (01) ==
LOC: NCHCN 12:38
PROVIDERS: PCP Nurse Practitioner Family; Visit Provider Nurse Practitioner Family
DX: E78.5 Hyperlipidemia, unspecified (principal)
CPT/HCPCS: 80053; 80061

== ENCOUNTER 2025-01-03 09:14 | Day surgery (SDC) | payer MEDICAID, SELFPAY ==
--- NOTE | 2025-01-02 19:02 | W.ANESPRE ---
General Info Date of Service Date Performed: 01/03/25 Height: 5 ft 11 in Weight: 76.204 kg Body Mass Index (BMI): 23.4 Surgical Procedure: Operation Date: 01/03/25 10:20 Proposed Procedure Side Surgeon p Colonoscopy/Gastroscopy Maik Scanlon MD Meds Allergies and Home Medications Allergies Allergy/AdvReac Type Severity Reaction Status Date / Time Penicillins Allergy Intermediate Skin Rash Unverified 01/03/25 09:29 vaccine adjuvant system, Allergy Intermediate fever, LLQ Verified 01/03/25 09:29 AS01B liposomal (From pain, GI Shingrix (PF)) symptoms, injsite pain [id number] varicella-zoster virus Allergy Intermediate fever, LLQ Verified 01/03/25 09:29 glycoprotein E, recombinant pain, GI (From Shingrix (PF)) symptoms, injsite pain [id number] omeprazole AdvReac Intermediate diarrhea Verified 01/03/25 09:29 with daily use, PRN ok Home Medication ?Medication ?Instructions ?Recorded rosuvastatin 20 mg tablet 20 mg PO QHS 05/31/21 omeprazole 20 mg capsule,delayed 20 mg PO DAILY PRN 04/16/24 release calcium carbonate (Tums) 200 mg PO BID PRN 10/02/24 Current Visit Medications: Current Medications Generic Name Dose Route Start Last Admin Trade Name Freq PRN Reason Stop Dose Admin Ringer's Solution 1,000 mls @ 80 mls/hr 01/03/25 06:00 IV 01/03/25 23:59 INFUSION TRISHA IV Miscellaneous Supplies 1 each 01/03/25 06:00 Iv Access IV 01/03/25 23:59 DIRECTED TRISHA Sodium Chloride 0 ml 01/03/25 06:00 Normal Saline Flush 10 Ml Syr IV 01/03/25 23:59 PRN PRN Sodium Chloride 0 ml 01/03/25 06:00 Normal Saline 10 Ml Vial IJ 01/03/25 23:59 DIRECTED PRN Sterile Water 0 ml 01/03/25 06:00 Water,Injection,Sterile 10 Ml Vial IJ 01/03/25 23:59 DIRECTED PRN PFSH Active Problems Active Problems: Problem Status Onset Code Hyperlipidemia Acute E78.5 GERD (gastroesophageal reflux disease) Chronic K21.9 Medical History Medical History (Updated 10/02/24 @ 11:44 by Jenifer Beckford RN) Diverticula of intestine COVID-19 Major depression LLQ abdominal pain Gaseous abdominal distention Nonspecific mesenteric adenitis Elbow joint pain Periapical abscess External hordeolum Chest wall pain Surgical History Surgical History (Updated 10/02/24 @ 11:44 by Jenifer Beckford RN) History of colonoscopy (~2014) Tobacco Smoking/Tobacco Use Status: Never Alcohol Alcohol Intake: current Alcohol intake frequency: a few times a month Substance Use Substance use: Never Substance use type: does not use Vital Signs and Lab Results Vital Signs Most Recent Vital Signs in EMR: Pulse Resp BP Pulse Ox 98 H 17 159/90 H 100 01/03/25 09:23 01/03/25 09:23 01/03/25 09:23 01/03/25 09:23 Anesthesia Assessment and Plan Anesthesia History Personal History: No History of Anesthesia Complications Family History: No Family History of Anesthesia Complications Exercise Tolerance Exercise Tolerance: Metabolic Equivalents>4 Cardiac & Pulmonary Exam Cardiac Exam: Normal S1/S2 Heart Sounds Pulmonary Exam: Clear Bilateral Breath Sounds Implantable Cardiac Device Does patient have a Pacemaker or an ICD?: No Airway Exam Known Difficult Airway: No Mallampati Class: 3 Mouth Opening: Narrow (< 3cm) Thyromental Distance: Less than 3 cm Neck Range of Motion: Full ROM Neck Circumference: Normal Teeth Condition: Normal Dentition ASA Classification ASA Score: ASA 2 Emergency Case?: No NPO Status NPO Status: NPO Clears >2 hours, Solids >8 hours Anesthesia Plan Resuscitation Status: Full Code Anesthesia Technique: General Anesthesia Airway Planned: Natural Airway Monitors Used: Standard Monitors Preoperative Comments:: 54 yo for EGD/colo. Sig PMHx: GERD, never smoker.
--- NOTE | 2025-01-02 19:30 | W.PM.DSUDISC ---
Date of service: 01/03/25 Discharge Plan Disposition Patient Disposition: Home Condition: Good Discharge Details Reason For Visit: EGD and colonoscopy Attending Provider: Maik Scanlon Primary Care Provider: Tish Parada Home Meds and New Rx's Prescriptions: Continued calcium carbonate [Tums] 200 mg calcium (500 mg) tablet,chewable 200 mg PO BID PRN rosuvastatin 20 mg tablet 20 mg PO QHS Patient Comments: TAKE 1 TABLET BY MOUTH DAILY omeprazole 20 mg capsule,delayed release(DR/EC) 20 mg PO DAILY PRN Discontinued bisacodyl [Dulcolax (bisacodyl)] 5 mg tablet,delayed release (DR/EC) 5 mg PO ONCE Qty: 4 0RF Rx Instructions: Take per colonoscopy instructions provided by ordering providers office polyethylene glycol 3350 17 gram/dose powder 17 g PO ONCE Qty: 238 0RF Rx Instructions: Take per colonoscopy instructions provided by ordering providers office Discharge Instructions Additional Instructions: Jg, was very nice meeting you today, and hope you are comfortable through the procedure and the make a quick recovery. Everything went very smoothly. With regards to your upper endoscopy, your esophagus appears totally normal, as does the area where your esophagus connects onto your stomach, or your GE junction. I do not see signs of Avery's esophagus. To be safe, I did do some biopsies of this area as we discussed beforehand. There are few polyps in your stomach, but all of these are quite small, and in an area that is not at all worrisome. These are common side effect of antacid medication such as your omeprazole. At this point, I do not think you need to do anything differently. I also took some biopsies of other areas of your stomach to rule out infection from a bacteria called Helicobacter pylori, that can cause some dyspepsia or reflux type symptoms. The results of all of these biopsies will take a week or so to get back. With regards to your colonoscopy, your prep was excellent and could see everything fine. I did not find any tumors or polyps today. With no other significant risk factors for colon cancer, I recommend a 10-year interval for your screening colonoscopies. If you need anything, or have any questions at all, please do not hesitate to ask, otherwise my office will be in touch once we have the report from the stomach biopsies. 1. If tolerated, consume a soft, low fiber diet for 1-2 days. 2[address] Do not drive, drink alcohol, operate machinery, make critical decisions, or do activities that require coordination or balance for 24 hours. 3. Because air was put into your colon during the procedure, expelling air from your rectum (passing gas or farting) is normal. 4. You may not have a bowel movement for 1-3 days because of the colonoscopy prep. This is normal. 5. You may experience a sore throat for 24 to 48 hours. You may use throat lozenges or gargle with warm salt water to relieve the discomfort. 6. Because air was put into your stomach during the procedure, you may experience some belching. 7. Go directly to the emergency room if you notice any of the following: Develop chills (warm to touch), or if you have a thermometer and your temperature is above 101 Difficulty breathing or difficultly swallowing Persistent vomiting Severe abdominal pain, other than gas cramps Severe chest pain Black, tarry stools Any bleeding ? exceeding one tablespoon 8. Call your physician if the site where your intravenous was started becomes red, swollen, painful, and warm to touch. 9. Your physician has reviewed your pre-procedure medications. Please continue to take those medications as previously ordered. You will be given specific information/education regarding any changes to your medications before leaving. Stand Alone Forms: Anesthesia Discharge Inst., DSU Post EGD Instructions, Colonoscopy Post Instructions, Ramos Reynolds (DSU) Activity:: Activity as Tolerated Diet:: As Tolerated Discharge Orders Discharge Orders: Discharge Order (Routine); Ordered 01/02/25 Ordered By: Maik Scanlon DS: Diagnosis Discharge Diagnosis (1) GERD (gastroesophageal reflux disease): Status: Chronic Asessment and Plan: Follow-up on biopsy results
--- NOTE | 2025-01-02 19:31 | W.PM.ENDDOP ---
Date of service: 01/03/25 Time of Service: 11:17 Endoscopy Report DATE OF PROCEDURE: 01/03/25 PRE-OP DIAGNOSIS: GERD and screening colonoscopy POST-OP DIAGNOSIS: other (Gastric polyps) PROCEDURE: EGD with biopsies and colonoscopy SURGEON: Maik Scanlon ANESTHESIA TYPE: General:No Airway ESTIMATED BLOOD LOSS: 5 PATHOLOGY: other (Nondirected biopsies of gastric antrum and body, biopsies of GE junction) COMPLICATIONS: None DISPOSITION: same day INDICATIONS: Jg is a 54 year old man with poorly controlled GERD. He needs a surveillance EGD as well as roustine screening colonoscopy PREP: Miralax/Dulcolax PROCEDURE START TIME: 10:31 PROCEDURE END TIME: 10:58 COLONOSCOPY RETRACTION TIME: 6 FINDINGS: Regular Z-line and GE junction at 36 cm from the incisors. Gastric fundic land polyps, normal colonoscopy PROCEDURE DESCRIPTION: After the initiation of anesthesia, and with the assistance of a bite block, I advanced a standard gastroscope through the mouth past the hypopharynx and into the esophagus.? Under the direct vision of the scope, I advanced down the esophagus towards the stomach.? The upper, mid, and lower esophagus were normal in course and caliber. Mucosa was healthy appearing. I saw no evidence of inflammation. The Z-line was perfectly regular and the GE junction measured 36 cm from the incisors. I advanced down into the stomach and insufflated. There were some gastric polyps restricted to the gastric body and cardia. All were well less than 1 cm. Narrowband imaging was used to assist with the analysis. Clinical features were all consistent with gastric fundic land polyps. The antrum was completely spared. I can advance into the duodenum with ease. Duodenal mucosa was normal and healthy. I then brought the camera back into the stomach and perform some nondirected biopsies of the gastric antrum and body to rule out Helicobacter pylori. Biopsies were performed with cold forceps with minimal bleeding. Given the history of GERD, and concern for Avery's on previous scopes, I did perform some biopsies of the GE junction, although the clinical features. Totally negative for Avery's. These biopsies were also performed with cold forceps without any difficulty. The stomach was then emptied, and the camera was brought back out along the length of the esophagus. No other abnormalities were appreciated. Yuval was then rolled into the left lateral decubitus position. Care was taken to pad and support him appropriately. I began by performing an external anorectal exam.? Perineum and skin were normal, as was the anal verge.? There was no evidence of external hemorrhoids.? Next, I performed a digital rectal exam.? I did not appreciate any abnormal findings.? Next, I advanced a colonoscope into the rectal vault.? I performed retroflexion.? This appeared normal.? Using irrigation, I then advanced the colonoscope beyond the rectal folds and into the sigmoid colon before advancing towards the cecum.? The scope was noted to be in the cecum by identification of the ileocecal valve and appendiceal orifice.? I then began withdrawing the colonoscope using repeated irrigation as necessary for full evaluation of the colonic mucosa. ?Once the scope was withdrawn to the level of the rectum, great care was taken to examine portions of the rectal folds.? I saw no signs of tumors or polyps. Finally, the scope was withdrawn and the patient was brought to the same-day surgery recovery unit as the anesthetic wore off. ?The findings and instructions were shared with the patient prior to discharge.
[2025-01-03 09:23] VITALS: BP 159/90; PULSE 98; RESP 17; O2SAT 100
[2025-01-03 09:42] VITALS: BMI 23.4
[2025-01-03] MEDS: Lactated Ringers 1,000 ML 80 ML IV (09:55)
--- NOTE | 2025-01-03 10:35 | STOM_PTH ---
PATIENT: Jg Brantley LOC: [facility] U#:[id number] AGE/SX: 54/M ROOM: RE01/03/[address]: Maik Scanlon MD : [id number] BED: DIS: 01/03/2025 SPEC #: [id number] RECD: 01/03/25 12:37 STATUS: [facility] #: [id number] JOVANI: 01/03/25 10:[address]: Maik Scanlon DEPT: Surgical Specimen RECD BY: Abby Logan ENTERED: 01/03/25 12:38 SP TYPE: STOMACH OTHR DR: Tish Parada Tissues: 1 - STOMACH BIOPSY 2 - STOMACH BIOPSY 3 - ESOPHAGUS BIOPSY Procedures: GROSS AND MICRO LEVEL 4 IMMUNOPEROXIDASE STAIN Comments: [id number]
[2025-01-03 11:04] VITALS: BP 121/76; PULSE 79; RESP 16; TEMP 36.3; O2SAT 96
--- NOTE | 2025-01-03 11:16 | W.ANESPOSTOP ---
Postoperative Evaluation Date, Time and Location Date Performed: 01/03/25 Time Performed: 11:16 Patient Location: Day Surgery Unit Vital Signs Most Recent Imported Vital Signs: Most Recent Vital Signs Temp Pulse Resp BP Pulse Ox 36.3 C L 79 16 121/76 96 01/03/25 11:04 01/03/25 11:04 01/03/25 11:04 01/03/25 11:04 01/03/25 11:04 Pain Score Most Recent Pain Score: Most Recent Pain Score Pain Level 0 01/03/25 11:04 Assessment Mental Status: Awake (Alert & Oriented to Patient Baseline) Airway and Respiratory Function: Patent airway with normal (patient baseline) respiratory exam Cardiovascular Function: Hemodynamically Stable Hydration Status: Adequately Hydrated Nausea & Vomiting: No Nausea or Vomiting Pain: Pt. Denies Any Pain Peripheral Nerve Block: Patient did not receive a nerve block
[2025-01-03 11:36] VITALS: BP 135/95; PULSE 88; RESP 14; TEMP 36.3; O2SAT 97
== END 2025-01-03 11:56 | disposition home or self-care (01) ==
LOC: SUR 09:14
PROVIDERS: PCP Nurse Practitioner Family; Visit Provider Surgery
PROC: (CPT 43239; principal; 2025-01-03 10:15)
DX: Z12.11 Encounter for screening for malignant neoplasm of colon (principal); K21.9 Gastro-esophageal reflux disease without esophagitis; K31.7 Polyp of stomach and duodenum; K31.89 Other diseases of stomach and duodenum; K22.89 Other specified disease of esophagus
CPT/HCPCS: 43239; 45378; 88305; 88361; J2250; J2405; J2704